=== PATIENT | male | born 1985 | race Caucasian/White ===

== ENCOUNTER 2020-07-24 20:58 | Emergency (ER) | payer OTHER ==
[~2020-07-24] VITALS: Ht 195.6 cm; Wt 110.0 kg
[2020-07-24 21:05] VITALS: BP 154/85
--- NOTE | 2020-07-24 22:07 | NUR ---
breaking primary RN; will cont to monitor
[2020-07-24] MEDS ORDERED: TETanus/Pertussis (Acell)/Diphther VAC/PF (Tdap-Adult) 0.5ml syringe IMVAC ONE (22:40)
== END 2020-07-24 23:12 | disposition home or self-care (01) ==
LOC: ER 20:59
DX: S61.011A Laceration without foreign body of right thumb without damage to nail, initial encounter (principal); M79.644 Pain in right finger(s); Z20.3 Contact with and (suspected) exposure to rabies; Z88.5 Allergy status to narcotic agent; Z88.1 Allergy status to other antibiotic agents; X58.XXXA Exposure to other specified factors, initial encounter; Y93.89 Activity, other specified; Y92.89 Other specified places as the place of occurrence of the external cause; Y99.8 Other external cause status
CPT/HCPCS: 12001; 90471; 90715; 99283